=== PATIENT | female | born 1950 | race Caucasian/White ===

== ENCOUNTER 2018-09-09 06:23 | Day surgery (SDC) | payer OTHER ==
[~2018-09-09] VITALS: Ht 146.1 cm; Wt 81.0 kg
[~2018-09-09 06:23] MED LIST: ALBU8.5H8 IH; FURO20 PO; GABA-531 PO; LOSA50TA64 PO; MOME13HF IH; MONT10TA21 PO; NAPR-58 PO; OMEP20 PO; PRED10 PO; SODIUM CHLORIDE 0.9% 1,000 ML IV ONE
[2018-09-09] MEDS ORDERED: LIDOCAINE 2% 30 ML JELLY TP ONE (06:24)
[2018-09-09] MEDS ORDERED: LIDOCAINE 4% 50 ML SOLUTION TP ONE (06:24)
[2018-09-09] MEDS ORDERED: BENZOCAINE 20% 50 MCG/SPRAY 57 GM TP ONE (06:24)
[2018-09-09] MEDS ORDERED: ALBUTEROL SULFATE 2.5 MG/0.5 ML NEB SOLUTION NEB ONE (06:24)
[2018-09-09] MEDS: SODIUM CHLORIDE 0.9% 1,000 ML IV ONE (07:19)
[2018-09-09] MEDS ORDERED: MIDAZOLAM HCL 2 MG/2 ML VIAL ONE (07:45)
[2018-09-09] MEDS ORDERED: FentaNYL CITRATE-PF 100 MCG/2 ML VIAL ONE (07:45)
[2018-09-09] MEDS: MethylPREDNISolone SOD SUCC 125 MG/2 ML VIAL IVP ONE (08:58)
[2018-09-09] MEDS ORDERED: OXYGEN THERAPY IH SCH (20:00)
== END 2018-09-09 10:10 | disposition home or self-care (01) ==
LOC: SURGERY 06:23
PROVIDERS: ATTEND Internal Medicine Critical Care Medicine
DX: J38.4 Edema of larynx (principal); B37.0 Candidal stomatitis; J98.09 Other diseases of bronchus, not elsewhere classified; I10 Essential (primary) hypertension; K21.9 Gastro-esophageal reflux disease without esophagitis; Z79.891 Long term (current) use of opiate analgesic; Z90.89 Acquired absence of other organs; Z90.710 Acquired absence of both cervix and uterus; Z79.899 Other long term (current) drug therapy
CPT/HCPCS: 31623; 31624; 87015; 87070; 87205; 87206; 87220; 88108; 88312; J2250; J2930; J3010; J7030

== ENCOUNTER 2020-05-12 06:08 | Day surgery (SDC) | payer OTHER ==
[2020-05-11 14:13] LABS: COVID AG,FIA SOURCE NASOPHARYNGEAL
[~2020-05-12] VITALS: Ht 157.5 cm; Wt 77.5 kg
[~2020-05-12 06:08] MED LIST changes: +GABA-1181 PO; -GABA-531 PO; +LOSA50TA37 PO; -LOSA50TA64 PO; +MONT-35 PO; -MONT10TA21 PO; +NAPR-1025 PO; -NAPR-58 PO
[2020-05-12] MEDS ORDERED: ALBUTEROL SULFATE 2.5 MG/0.5 ML NEB SOLUTION NEB ONE (06:09)
[2020-05-12] MEDS ORDERED: LIDOCAINE 2% 30 ML JELLY TP ONE (06:09)
[2020-05-12] MEDS ORDERED: BENZOCAINE 20% 50 MCG/SPRAY 57 GM TP ONE (06:09)
[2020-05-12] MEDS ORDERED: LIDOCAINE 4% 50 ML SOLUTION TP ONE (06:09)
[2020-05-12] MEDS ORDERED: SODIUM CHLORIDE 0.9% 1,000 ML ONE (06:24)
[2020-05-12] MEDS ORDERED: SODIUM CHLORIDE 0.9% 1,000 ML IV ONE (06:30)
[2020-05-12] MEDS ORDERED: DOXY75TA14 PO (07:30)
[2020-05-12] MEDS ORDERED: CALC-789 PO (07:30)
[2020-05-12] MEDS ORDERED: FentaNYL CITRATE-PF 100 MCG/2 ML VIAL ONE (08:12)
[2020-05-12] MEDS ORDERED: MIDAZOLAM HCL 2 MG/2 ML VIAL ONE (08:12)
[2020-05-12] MEDS ORDERED: MethylPREDNISolone SOD SUCC 125 MG/2 ML VIAL ONE (08:40)
[2020-05-12] MEDS ORDERED: MethylPREDNISolone SOD SUCC 125 MG/2 ML VIAL IVP ONE (08:45)
[2020-05-12] MEDS ORDERED: OXYGEN THERAPY IH SCH (20:00)
== END 2020-05-12 10:45 | disposition home or self-care (01) ==
LOC: SURGERY 06:08
PROVIDERS: ATTEND Internal Medicine Critical Care Medicine
DX: J38.4 Edema of larynx (principal); B37.0 Candidal stomatitis; K21.9 Gastro-esophageal reflux disease without esophagitis; I10 Essential (primary) hypertension; E78.5 Hyperlipidemia, unspecified; Z98.890 Other specified postprocedural states
CPT/HCPCS: 31623; 31624; 71045; 87015; 87070; 87101; 87205; 87206; 87220; 87426; 88108; 88312; C9803; J2250; J2930; J3010; J7030; J7613; Z7610

== ENCOUNTER 2022-03-11 05:48 | Day surgery (SDC) | payer MEDICARE, OTHER ==
[~2022-03-11] VITALS: Ht 157.5 cm; Wt 77.5 kg
[~2022-03-11 05:48] MED LIST changes: +CALC-789 PO; +DOXY75TA14 PO; +LOSA-382 PO; -LOSA50TA37 PO; +PRED-729 PO; -PRED10 PO; -SODIUM CHLORIDE 0.9% 1,000 ML IV ONE
[2022-03-11] MEDS ORDERED: SODIUM CHLORIDE 0.9% 1,000 ML ONE (06:37)
[2022-03-11 07:08] LABS: COVID AG,FIA SOURCE NASOPHARYNGEAL
[2022-03-11] MEDS ORDERED: FentaNYL CITRATE PF 100 MCG/2 ML VIAL ONE (07:51)
[2022-03-11] MEDS ORDERED: MIDAZOLAM HCL 5 MG/ML VIAL ONE (07:51)
[2022-03-11] MEDS ORDERED: SODIUM CHLORIDE 0.9% 10 ML ONE (08:21)
[2022-03-11] MEDS ORDERED: SODIUM CHLORIDE 0.9% 1,000 ML IV ONE (09:00)
[2022-03-11] MEDS ORDERED: MethylPREDNISolone SOD SUCC 125 MG/2 ML VIAL IVP ONE (09:00)
[2022-03-11] MEDS ORDERED: MethylPREDNISolone SOD SUCC 125 MG/2 ML VIAL ONE (09:26)
[2022-03-11] MEDS ORDERED: BENZOCAINE 20% 50 MCG/SPRAY 57 GM ONE (12:06)
[2022-03-11] MEDS ORDERED: LIDOCAINE 2% 11 ML JELLY ONE (12:06)
[2022-03-11] MEDS ORDERED: LIDOCAINE 4% 50 ML SOLUTION ONE (12:06)
[2022-03-11] MEDS ORDERED: OXYGEN THERAPY IH SCH (20:00)
== END 2022-03-11 11:50 | disposition home or self-care (01) ==
LOC: SURGERY 05:48
PROVIDERS: ATTEND Internal Medicine Critical Care Medicine
DX: J38.4 Edema of larynx (principal); B37.0 Candidal stomatitis; Z79.899 Other long term (current) drug therapy; J45.909 Unspecified asthma, uncomplicated; Z98.890 Other specified postprocedural states
CPT/HCPCS: 31623; 88112; 87206; 87101; 87220; 87070; 87015; 88305; 88312; 31624; 71045; 87426; 93005; J3010; J2930; J2250; Q9967; J7030; C9803; Z7610

== ENCOUNTER → 2023-10-03 | Day surgery (SDC) | payer MEDICARE, OTHER ==
[~2023-10-03] VITALS: Ht 165.1 cm; Wt 79.5 kg
[~2023-10-03] MED LIST changes: +ACET-3385 PO; +ALBUTEROL SULFATE 2.5 MG/0.5 ML NEB SOLUTION NEB ONE; +APIX5TAB PO; +BENZOCAINE 20% 50 MCG/SPRAY 57 GM ONE; -DOXY75TA14 PO; -FURO20 PO; +FentaNYL CITRATE PF 100 MCG/2 ML VIAL ONE; -GABA-1181 PO; +LIDOCAINE 2% 11 ML JELLY ONE; +LIDOCAINE 4% 50 ML SOLUTION ONE; +MIDAZOLAM HCL 2 MG/2 ML VIAL ONE; -MOME13HF IH; +MOME13HF11 IH; -MONT-35 PO; +MethylPREDNISolone SOD SUCC 125 MG/2 ML VIAL ONE; -NAPR-1025 PO; -OMEP20 PO; -PRED-729 PO
[2023-10-03] MEDS: SODIUM CHLORIDE 0.9% 1,000 ML IV ONE (08:07)
[2023-10-03 09:25] VITALS: PULSE 65; RESP 18; O2SAT 100
[2023-10-03] MEDS: MethylPREDNISolone SOD SUCC 125 MG/2 ML VIAL IVP ONE (10:00)
== END | disposition still patient (30) ==
LOC: SURGERY 07:10
PROVIDERS: ATTEND Internal Medicine Critical Care Medicine
DX: R05.3 Chronic cough (principal); Z79.899 Other long term (current) drug therapy; Z98.890 Other specified postprocedural states
CPT/HCPCS: 31623; 87206; 87101; 87220; 87070; 88108; 88305; 31624; 94640; 71045; 87015; 93005; J3010; J2250; J2930; Q9967; J7613; Z7610